=== PATIENT | female | born 1965 | race Hispanic/Latino ===

== ENCOUNTER → 2018-12-21 | Outpatient (CLI) | payer MEDICAID | END | disposition home or self-care (01) | LOC: RAH 12:28 | PROVIDERS: ATTEND Family Medicine | DX: R59.0 Localized enlarged lymph nodes (principal) | CPT/HCPCS: 76641; 77066 ==

== ENCOUNTER → 2018-12-28 | Outpatient (CLI) | payer MEDICAID, MEDICARE, OTHER | END | disposition home or self-care (01) | LOC: SHCH 15:55 | PROVIDERS: ATTEND Internal Medicine Cardiovascular Disease | DX: I51.7 Cardiomegaly (principal); I35.0 Nonrheumatic aortic (valve) stenosis; R60.9 Edema, unspecified | CPT/HCPCS: 93306; 93970 ==

== ENCOUNTER → 2021-03-24 | Outpatient (CLI) | payer MEDICARE | END | disposition home or self-care (01) | LOC: SHCH 08:41 | PROVIDERS: ATTEND Internal Medicine Cardiovascular Disease | DX: R07.9 Chest pain, unspecified (principal); R06.09 Other forms of dyspnea | CPT/HCPCS: 93306; 93356 ==

== ENCOUNTER → 2021-04-03 | Outpatient (CLI) | payer MEDICARE | END | disposition home or self-care (01) | LOC: SHCH 10:50 | PROVIDERS: ATTEND Internal Medicine Cardiovascular Disease | DX: I65.23 Occlusion and stenosis of bilateral carotid arteries (principal); R09.89 Other specified symptoms and signs involving the circulatory and respiratory systems | CPT/HCPCS: 93880 ==

== ENCOUNTER 2022-05-11 21:22 | Observation (INO) | payer MEDICARE ==
[~2022-05-11] VITALS: Ht 160 cm; Wt 111.2 kg
[2022-05-11] MEDS ORDERED: ASPIRIN 81MG CHEW TAB PO ONE (21:30)
[2022-05-11 21:38] LABS: BASOPHILS % (AUTO) 0.3 % (0.0-5.0); EOSINOPHILS % (AUTO) 0.5 % (0.0-8.0); HEMATOCRIT 38.5 % (36-48); LYMPHOCYTES % (AUTO) 24.6 % (21.0-51.0); MEAN CORPUSCULAR HEMOGLOBIN 30.4 pg (27.0-33.0); MEAN CORPUSCULAR HGB CONC 34.5 g/dL (32.0-36.0); MEAN CORPUSCULAR VOLUME 87.9 fL (79-99); NEUTROPHILS % (AUTO) 68.3 % (40.0-77.0); PLATELET COUNT (AUTO) 236 K/uL (130-400); RED BLOOD CELL COUNT(AUTO) 4.38 MIL/uL (4.00-5.50); RED CELL DISTRIBUTION WIDTH 12.2 % (11.0-15.5); WHITE BLOOD COUNT (AUTO) 6.3 K/uL (4.8-10.8)
[2022-05-11 21:49] LABS: CREATININE 0.8 mg/dL (0.5-1.5); POTASSIUM 3.4 mmol/L (3.5-5.1)
[2022-05-11 21:59] LABS: ALBUMIN 3.1 g/dL (3.5-5.0); TOTAL PROTEIN, SERUM 7.4 g/dL (6.0-8.3)
[2022-05-11] MEDS ORDERED: PANTOPRAZOLE 40 MG/VIAL IVP ONE (22:00)
[2022-05-11 22:02] LABS: B-TYPE NATRIURETIC PEPTIDE 32 pg/mL (0-100)
[2022-05-11] MEDS ORDERED: ONDANSETRON 4MG INJ IVP ONE (22:30)
[2022-05-11] MEDS ORDERED: MORPHINE 4 MG SYG IVP ONE ×2 (23:00)
[2022-05-11] MEDS ORDERED: ONDANSETRON 4MG INJ IV ONE (23:00)
[2022-05-11] MEDS ORDERED: IOHEXOL 350 MG/ML 100ML INFUS..BTL IV ONE (23:16)
[2022-05-12] MEDS ORDERED: ONDANSETRON 4MG INJ IV PRN (01:00)
[2022-05-12] MEDS ORDERED: ACETAMINOPHEN 325 MG TAB PO PRN (01:00)
[2022-05-12] MEDS ORDERED: KCL 20 MEQ ERTAB PO PRN (01:00)
[2022-05-12] MEDS ORDERED: POTASSIUM CHLORIDE 10% ELIXIR 20 MEQ/15 ML UDCUP PO PRN (01:00)
[2022-05-12] MEDS ORDERED: LIDOCAINE HCL-MPF 1% 2ML VIAL IV PRN (01:00)
[2022-05-12] MEDS ORDERED: HYDROCODONE/ACETAMINOPHEN 5/325 MG TAB PO PRN ×2 (01:00)
[2022-05-12] MEDS ORDERED: POTASSIUM CHLORIDE 20MEQ/100ML 100 ML IV PRN (01:00)
[2022-05-12] MEDS ORDERED: LIDOCAINE HCL 2% VISCOUS 15 ML UDCUP ONE (01:18)
[2022-05-12] MEDS ORDERED: DICYCLOMINE HCL 10 MG/5 ML ML PO ONE (01:18)
[2022-05-12] MEDS ORDERED: MAG/ALUM/SIMETH 30 ML UDCUP ONE (01:18)
[2022-05-12] MEDS: NITROGLYCERIN 1GM OINT 1 INCH/1GM TD SCH ×2 (01:21→08:48)
[2022-05-12] MEDS ORDERED: ALBUTEROL INHALER 90MCG/INH IH PRN (02:00)
[2022-05-12 03:50] VITALS: BP 114/64
[2022-05-12] MEDS ORDERED: LEVO50CA4 PO (07:06)
[2022-05-12] MEDS ORDERED: METO-408 PO (07:06)
[2022-05-12] MEDS ORDERED: LOSA25TA41 PO (07:06)
[2022-05-12 07:15] VITALS: BP 113/65
[2022-05-12 08:10] LABS: BASOPHILS % (AUTO) 0.4 % (0.0-5.0); EOSINOPHILS % (AUTO) 0.7 % (0.0-8.0); HEMATOCRIT 37.5 % (36-48); LYMPHOCYTES % (AUTO) 34.5 % (21.0-51.0); MEAN CORPUSCULAR HEMOGLOBIN 30.3 pg (27.0-33.0); MEAN CORPUSCULAR HGB CONC 33.3 g/dL (32.0-36.0); MEAN CORPUSCULAR VOLUME 90.8 fL (79-99); MONOCYTES % (AUTO) 6.3 % (3.0-13.0); NEUTROPHILS % (AUTO) 57.7 % (40.0-77.0); PLATELET COUNT (AUTO) 229 K/uL (130-400); RED BLOOD CELL COUNT(AUTO) 4.13 MIL/uL (4.00-5.50); RED CELL DISTRIBUTION WIDTH 12.7 % (11.0-15.5); WHITE BLOOD COUNT (AUTO) 4.5 K/uL (4.8-10.8)
[2022-05-12 08:22] LABS: CREATININE 0.7 mg/dL (0.5-1.5); MAGNESIUM 2.2 mg/dL (1.80-2.40); PHOSPHORUS 3.2 mg/dL (2.5-4.9); POTASSIUM 3.9 mmol/L (3.5-5.1)
[2022-05-12] MEDS ORDERED: ENOXAPARIN SODIUM 40 MG/0.4 ML SYRINGE SQ SCH (09:00)
[2022-05-12] MEDS ORDERED: FAMOTIDINE 20MG TAB PO SCH (09:00)
[2022-05-12] MEDS ORDERED: ASPIRIN 81MG CHEW TAB PO SCH (09:00)
[2022-05-12 11:20] VITALS: BP 97/56
[2022-05-12] MEDS ORDERED: PANT40TA PO (14:31)
== END 2022-05-12 16:15 | disposition home or self-care (01) ==
LOC: EDH 21:22 → EDHIP 23:08 → INTOOBSV 23:08 → 3CH 05-12 03:50
PROVIDERS: ADMIT Internal Medicine; ATTEND Internal Medicine
DX: R07.89 Other chest pain (principal); Z20.822 Contact with and (suspected) exposure to COVID-19; I49.9 Cardiac arrhythmia, unspecified; I10 Essential (primary) hypertension; J45.909 Unspecified asthma, uncomplicated; E78.00 Pure hypercholesterolemia, unspecified; E87.6 Hypokalemia; G40.909 Epilepsy, unspecified, not intractable, without status epilepticus; K80.20 Calculus of gallbladder without cholecystitis without obstruction; K92.0 Hematemesis; Z85.42 Personal history of malignant neoplasm of other parts of uterus; Z86.73 Personal history of transient ischemic attack (TIA), and cerebral infarction without residual deficits; Z90.710 Acquired absence of both cervix and uterus; Z79.899 Other long term (current) drug therapy; Z98.890 Other specified postprocedural states; Z79.82 Long term (current) use of aspirin
CPT/HCPCS: 96374; 96375; 99285; 84484 ×4; 80053; 83880; 85025 ×2; 82270; 36415 ×2; 71045; 74177; 93005; 96372; 83735; 84100; 80048; 87635; J2405; J2270; C9113; Q9967; G0378 ×2; J1650

== ENCOUNTER → 2024-10-02 | Outpatient (CLI) | payer MEDICARE ==
[~2024-10-02] MED LIST: LEVO50CA4 PO; LOSA25TA41 PO; METO-408 PO; PANT40TA PO
[2024-10-02 15:56] LABS: THYROID STIMULATING HORMONE 3.73 uIU/mL (0.36-3.74)
== END | disposition home or self-care (01) ==
LOC: LAB 14:40
PROVIDERS: ATTEND Internal Medicine Endocrinology, Diabetes & Metabolism
DX: E06.3 Autoimmune thyroiditis (principal)
CPT/HCPCS: 36415; 84439; 84443; 84481

== ENCOUNTER → 2025-09-16 | Outpatient (CLI) | payer MEDICARE ==
[~2025-09-16] MED LIST changes: -LEVO50CA4 PO; +LEVO50CA5 PO
--- NOTE | 2025-09-17 15:49 | HMCIMG ---
DIGITAL BILATERAL SCREENING MAMMOGRAM Technique: The digital mammographic examination of both breasts in craniocaudal and mediolateral oblique views along with CAD was obtained. History: This is a 60 years year-old female 3, para1 Ab2. Patient has history of right breast biopsy in March 2013 which was benign. Patient had right breast cyst aspiration of March. Patient has no family history of breast cancer. Patient complaining of right breast tenderness for 6 years. Reference:Prior mammogram from 12/21/2018 and 02/03/2017 are available.. Breast composition: Breast composition B: There are scattered areas of fibroglandular density. Finding: The digital mammographic examination of both breasts in craniocaudal and mediolateral oblique view along with CAD demonstrates both breasts to BE mildly heterogeneously dense due to fibroglandular stromal elements. There is a solitary benign macrocalcification in left breast unchanged from prior study.. There is no evidence of any dendritic mass, cluster microcalcification or architectural distortion. The retromammary fat appears to be normal. IMPRESSION: Unchanged from prior mammography. NO RADIOGRAPHIC EVIDENCE OF MALIGNANT CHANGES. WE WOULD RECOMMEND ANNUAL FOLLOW UP WITH TOMOSYNTHESIS UNLESS OTHERWISE CLINICALLY INDICATED. FINAL ASSESSMENT: ACR: BI-RAD - 1. Negative Mammogram. NOTE: IF A WORK-UP OF THIS PATIENT LEADS TO A BIOPSY, PLEASE FORWARD A COPY OF THE PATHOLOGY REPORT TO OUR OFFICE REQUIRED BY SA EFFECTIVE JULY 31, 1994. A NEGATIVE MAMMOGRAM SHOULD NOT PRECLUDE BIOPSY OF A CLINICALLY PALPABLE SUSPICIOUS MASS, 10% OF BREAST CANCERS ARE MAMMOGRAPHICALLY OCCULT. THIS MAMMOGRAPHY FACILITY IS FULLY ACCREDITED BY THE [employer]OD AND [employer]UG [employer]ATION (FDA). THANK YOU FOR THIS REFERRAL.
== END | disposition home or self-care (01) ==
LOC: RAH 13:12
PROVIDERS: ATTEND Family Medicine
DX: Z12.31 Encounter for screening mammogram for malignant neoplasm of breast (principal); R92.323 Mammographic fibroglandular density, bilateral breasts; N60.01 Solitary cyst of right breast
CPT/HCPCS: 77067